=== PATIENT | female | born 1985 | race Caucasian/White ===

== ENCOUNTER 2016-11-11 09:42 | Inpatient (IN) ==
--- NOTE | 2016-11-11 10:08 | Emergency Department Note ---
Disposition Clinical Impression: Bacteremia Disposition: Admitted As Inpatient Recheck wound or abnormal lab - General Stated Complaint: + blood cultures Time Seen by Provider: 11/11/16 09:51 Source: patient, family Limitations: no limitations Nursing Notes Reviewed: Yes Vital Signs Reviewed: Yes - History of Present Illness HPI Narrative: Ms. Forman, a 31yo female, presents with CC: abnormal labs. Patient was seen in this emergency department yesterday with complaint of persistent abdominal pain , history of colonic abscess managed by Dr. Stephen, currently on Cipro and Flagyl. Blood cultures were drawn yesterday which were reported today: gram- positive riddhi and streptococci species. Patient reports chills, weakness, feeling flush. Her abdominal pain persists which she describes as a loading, heaviness, intermittent sharp stabbing. Abdominal pain worsened with walking and associated with nausea, decreased appetitie. Denies diarrhea or constipation, no dark or red stools, no changes in urination. Denies chest pain, dyspnea. Patient is currently on immunosuppressants for RA. PMH:Diverticulosis, diverticulitis, known recent colonic abscess, RA PSH: appendectomy - Related Data Home Medications Medication Instructions Recorded Confirmed Leflunomide [Arava] 20 mg PO DAILY 08/13/16 11/11/16 TraMADol [Ultram] 50 - 100 mg PO Q6H PRN 08/13/16 11/11/16 Ciprofloxacin [Cipro] 500 mg PO BID 11/11/16 11/11/16 MetroNIDAZOLE [Flagyl] 500 mg PO BID 11/11/16 11/11/16 Venlafaxine XR (24 HR) [Effexor Xr] 37.5 mg PO DAILY 11/11/16 11/11/16 Previous Rx's Medication Instructions Recorded Ondansetron ODT [Zofran ODT] 4 mg PO Q6HR PRN #10 tab.rapdis 08/13/16 HYDROcodone/Acet 5/325 mg [[place] 1 tab PO Q6H PRN #20 tab 11/10/16 5-325 mg] Allergies Allergy/AdvReac Type Severity Reaction Status Date / Time No Known Allergies Allergy Verified 11/11/16 09:51 All systems ED: reviewed and negative except as stated. Constitutional: Reports: fever, chills, weakness. Denies: night sweats ENT ED: Denies: congestion Cardiovascular: Denies: chest pain, palpitations, dyspnea on exertion Respiratory: Denies: cough, dyspnea, wheezes Gastrointestinal: Reports: abdominal pain, nausea. Denies: vomiting, diarrhea, constipation, melena, hematochezia Genitourinary: Denies: dysuria Musculoskeletal: Denies: back pain Integumentary: Denies: rash Neurological: Reports: weakness, abnormal gait. Denies: headache, numbness, paresthesias Endocrine: Reports: fatigue Hematological/Lymphatic: Denies: easy bleeding, easy bruising Past Medical History - Past Medical History Medical history: Reports: GERD, RA, other Surgical history: Reports: appendectomy Psychiatric history: Reports: no psych history FOUNDATION RELATIONS MANAGER history: Reports: no FOUNDATION RELATIONS MANAGER history - Social History Smoking Status: Never smoker Smokeless Tobacco Status: No Alcohol use: Reports: none Drug use: Reports: none Physical Exam General: Patient is alert, oriented, and in no acute distress. HEENT: No facial asymmetry. Head is normocephalic and atraumatic. Cardiovascular: Heart regular rate and rhythm without clicks, rubs, gallops, or murmurs. Respiratory: Symmetric chest rise with good respiratory effort. Bilateral breath sounds are clear without wheezing, crackles, or rhonchi. Abdomen: Obese. Bowel sounds present normoactive x-4 quadrants. Abdomen is soft, nondistended. Tenderness in LLQ described as sharp. No rebound tenderness. No organomegaly noted. Musculoskeletal: Muscle strength 5/5 and symmetric bilaterally in upper and lower extremities. DTRs 2/4 and symmetric. Psych: Patient's affect is appropriate for situation. - General Limitations: no limitations General appearance: alert, in no apparent distress Course Course Narrative: Will repeat sepsis workup. After blood cultures, will begin IV abx and gentle fluid rehydration. PAtient is not tachypneic or tachycardic. No clinical indication at this time for aggressive fluid rehydration. Anticipate admission for continued antibiotics. 10:[address] Bernard. He decreased to accept the patient for continued IV abx. Vital Signs Temperature 98.1 F 11/11/16 09:51 Pulse Rate 96 11/11/16 09:51 Respiratory Rate 18 11/11/16 09:51 Blood Pressure 144/88 11/11/16 09:51 O2 Sat by Pulse Oximetry 97 11/11/16 09:51 Temperature 98.3 F 11/11/16 11:51 Pulse Rate 84 11/11/16 11:51 Respiratory Rate 16 11/11/16 11:51 Blood Pressure 117/76 11/11/16 11:51 O2 Sat by Pulse Oximetry 95 11/11/16 11:51 Oxygen Delivery Oxygen Delivery Room Air Recheck wound or abnormal lab - Lab Data Result diagrams: 11/11/16 10:15 11/11/16 10:15 Lab Results 11/11/16 11/11/16 11/11/16 Range/Units 10:15 10:15 10:15 WBC 5.7 (4.3-11.1) K/mcL RBC 4.43 (3.82-4.97) M/mcL Hgb 12.7 (11.5-15.4) g/dL Hct 40.3 (35.3-44.9) % MCV 91.0 (83.0-100.0) fL MCH 28.7 (28.0-33.3) pg MCHC 31.5 L (31.6-35.5) g/dL RDW 14.0 (11.5-14.5) % Plt Count 290 (140-400) K/mcL MPV 9.2 L (9.4-12.4) fL Immature Gran % 0.4 (0-4) % Seg Neutrophils % 68.4 % Lymphocytes % 16.8 % Monocytes % 8.4 % Eosinophils % 5.3 % Basophils % 0.7 % Neutrophils # 3.9 (1.6-8.9) K/mcL Lymphocytes # 1.0 (0.6-4.6) K/mcL Monocytes # 0.5 (0.0-1.3) K/mcL Eosinophils # 0.3 (0.0-0.6) K/mcL Basophils # 0.0 (0.0-0.2) K/mcL Sodium 138 (136-145) mEq/L Potassium 3.9 (3.5-4.5) mEq/L Chloride 108 (98-109) mEq/L Carbon Dioxide 23 (19-29) mEq/L BUN 5 L (7-20) mg/dL Creatinine 0.74 (0.57-1.11) mg/dL Est GFR ( Amer) > 60 (> 60) Est GFR (Non-Af Amer) > 60 (> 60) BUN/Creatinine Ratio 7 (6-26) Glucose 97 (70-99) mg/dL Calculated Osmolality 283 (280-300) Lactic Acid 1.0 (0.5-2.2) mmol/L Calcium 9.5 (8.6-10.8) mg/dL Phosphorus 1.5 L (2.3-4.7) mg/dL Magnesium 2.0 (1.6-2.6) mg/dL Total Bilirubin 0.7 (0.2-1.2) mg/dL Direct Bilirubin 0.4 (0.0-0.5) mg/dL Indirect Bilirubin 0.3 (0.0-1.2) mg/dL AST 26 (5-34) Units/L ALT 13 (0-55) Units/L Alkaline Phosphatase 130 H (38-126) Units/L Serum Total Protein 8.4 H (6.0-8.3) g/dL Albumin 3.5 (3.5-5.0) g/dL Globulin 4.9 H (2.4-3.5) g/dL Albumin/Globulin Ratio 0.7 L (1.1-2.2) - EKG Data EKG attestation: Yes I reviewed and interpreted this EKG. EKG results narrative: Sinus tachycardia at 100 with poor R-wave progression. No ST changes. Normal axis. Attestation Statement - Attestation Attestation: I examined this patient and my medical decision-making was reviewed with the DELI ASSOCIATE/PA/Advanced Practice Nurse/Resident Physician. I agree with the documented findings, disposition and treatment plan as described except to the extent set forth below. The patient presents to emergency department after being called in for positive blood cultures. Patient has been treated on and off for diverticulitis since the fall. She has had rounds of Augmentin and is currently on Cipro Flagyl. She is recently diagnosed with an abscess in her left lower quadrant. This is believed to be from her immune suppressants for her rheumatoid arthritis. On exam she is in no distress. Heart regular rate and rhythm lungs clear. She does have some tenderness over the left pelvic area. Plan. Sepsis protocol. IV antibiotics ordered. Admitted to medicine. Labs unremarkable. No white count. Patient is admitted to medicine. Zosyn started emergency department.
[2016-11-11] MEDS ORDERED: Piperacillin/Tazobactam 4.5 GM in D5% in Water (Mini-Bag+) 100 ML IVPB ONE (10:21)
[2016-11-11 10:23] LABS: Basophils % 0.7 %; Eosinophils # 0.3 K/mcL (0.0-0.6); Eosinophils % 5.3 %; Hematocrit 40.3 % (35.3-44.9); Hemoglobin 12.7 g/dL (11.5-15.4); Immature Granulocytes % 0.4 % (0-4); Lymphocytes % 16.8 %; Mean Corpuscular HGB Conc 31.5 g/dL (31.6-35.5); Mean Corpuscular Hemoglobin 28.7 pg (28.0-33.3); Mean Platelet Volume 9.2 fL (9.4-12.4); Monocytes # 0.5 K/mcL (0.0-1.3); Monocytes % 8.4 %; Neutrophils # 3.9 K/mcL (1.6-8.9); Platelet Count 290 K/mcL (140-400); Red Blood Count 4.43 M/mcL (3.82-4.97); Segmented Neutrophils % 68.4 %
[2016-11-11 10:38] LABS: Alanine Aminotransferase 13 Units/L (0-55); Albumin 3.5 g/dL (3.5-5.0); Albumin/Globulin Ratio 0.7 (1.1-2.2); Alkaline Phosphatase 130 Units/L (38-126); Aspartate Amino Transferase 26 Units/L (5-34); BUN/Creatinine Ratio 7 (6-26); Bilirubin,Direct 0.4 mg/dL (0.0-0.5); Bilirubin,Indirect 0.3 mg/dL (0.0-1.2); Bilirubin,Total 0.7 mg/dL (0.2-1.2); Blood Urea Nitrogen 5 mg/dL (7-20); Calcium 9.5 mg/dL (8.6-10.8); Carbon Dioxide 23 mEq/L (19-29); Chloride 108 mEq/L (98-109); Globulin 4.9 g/dL (2.4-3.5); Glucose 97 mg/dL (70-99); Osmolality,Calculated 283 (280-300); Phosphorous 1.5 mg/dL (2.3-4.7); Potassium 3.9 mEq/L (3.5-4.5); Sodium 138 mEq/L (136-145); Total Protein 8.4 g/dL (6.0-8.3); eGFR For African Americans > 60 (> 60); eGFR For Non-African Americans > 60 (> 60)
[2016-11-11] MEDS ORDERED: Ondansetron 4 MG/2 ML VIAL IVP STA (10:54)
[2016-11-11] MEDS ORDERED: *HR* Morphine 2 MG/ML SYRINGE IVP ONE (10:55)
[2016-11-11] MEDS ORDERED: *HR* Morphine 2 MG/ML SYRINGE IV PRN (11:43)
[2016-11-11] MEDS ORDERED: Acetaminophen 325 MG TABLET PO PRN (11:44)
[2016-11-11] MEDS ORDERED: Naloxone 0.4 MG/ML INJ IVP PRN (11:44)
[2016-11-11] MEDS ORDERED: Ondansetron 4 MG/2 ML VIAL IVP PRN (11:44)
--- NOTE | 2016-11-11 11:53 | Internal Med History&Physical ---
Date of Encounter: 11/11/16 Time of Encounter: 11:50 Assessment and Plan (1) Bacteremia Current visit: Yes Status: Acute Bacteremia with gram-positive rods and also gram-positive cocci/Streptococcus likely related to intra-abdominal abscess/sigmoid acute diverticulitis Discontinue ciprofloxacin and Flagyl (Flagyl has good coverage for gram- negative anaerobes) Start ampicillin with sulbactam , also clindamycin IV May adjust therapy according to culture sensitivity, consider vancomycin IV if worse Clear liquids, may switch to nothing by mouth if not improving Consider surgical reconsult with Dr. Stephen if not improving IV fluids and morphine for pain (2) Intra-abdominal abscess Current visit: No Status: Acute (3) Acute diverticulitis Current visit: Yes Status: Acute (4) Rheumatoid arthritis Current visit: Yes Status: Acute Hold Areva until infection improves Protonix IV for GI prophylaxis and sequential compression devices for DVT prophylaxis. Patient will be admitted as inpatient as she failed outpatient therapy, she is expected to stay more than 2 midnights. She is a full code. Time spent on this admission 40 minutes. High risk due to persistent sigmoid abscess and diverticulitis Internal Medicine - H&P: HPI Chief complaint: Abdominal pain Admitted From: Emergency Dept Plans for Post Hospital Care: Home History of present illness: Ms. Forman is a 31 year old female with a past medical history of lupus, rheumatoid arthritis currently on Arava, who was diagnosed within the past 2 weeks with the diverticulitis and was treated by Dr. Stephen. 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 Yesterday, she came to the emergency room and a CT scan was performed which showed a persistent abscess 2.5 x 1.5 cm adjacent to the sigmoid colon/diverticulitis. 2 weeks ago the patient was taking Augmentin and for the past 3 days she has been taking ciprofloxacin and Flagyl, unfortunately she has not felt any improvement in his us to complain of lower abdominal pain 7 out of 10 in intensity. Had a fever of 100.1. White blood cell count today is normal was more than 11 yesterday. Denies any diarrhea, no vomiting has been having nausea. Denies any cough, no dysuria, no other complaints Past Med Surg Social Fam HX - Past Medical History Medical history: GERD, RA (Treated with leflunomide), other (Possible lupus not active, diverticulosis, diverticulitis, anxiety) Psychiatric history: no psych history - Past Surgical History Surgical History: appendectomy, other (Left axillary lymph node biopsy, last echocardiogram shows an ejection fraction of 50-55%) - Social History Smoking Status: Never smoker Smokeless Tobacco Status: No Alcohol use: none Drug use: none - Additional Family History Additional family history: According to the records had a maternal grandmother with lymphoma Internal Medicine - H&P: Meds Leflunomide [Arava] 20 mg PO DAILY 08/13/16 [History] Ondansetron ODT [Zofran ODT] 4 mg PO Q6HR PRN #10 tab.rapdis 08/13/16 [Rx] TraMADol [Ultram] 50 - 100 mg PO Q6H PRN 08/13/16 [History] HYDROcodone/Acet 5/325 mg [[place] 5-325 mg] 1 tab PO Q6H PRN #20 tab 11/10/16 [Rx ] Ciprofloxacin [Cipro] 500 mg PO BID 11/11/16 [History] MetroNIDAZOLE [Flagyl] 500 mg PO BID 11/11/16 [History] Venlafaxine XR (24 HR) [Effexor Xr] 37.5 mg PO DAILY 11/11/16 [History] Allergies No Known Allergies Allergy (Verified 11/11/16 09:51) All Systems PM: A 10-system review of systems was performed and is negative for pertinent findings except as documented above in the HPI. Review of systems: Denies any chest pain, shortness of breath, other systems out of the 10 reviewed were negative - Constitutional Vitals: Temp Pulse Resp BP Pulse Ox 98.1 F 96 16 146/88 97 11/11/16 09:51 11/11/16 09:51 11/11/16 11:24 11/11/16 11:24 11/11/16 09:51 General appearance: Present: A&O X 3, pleasant, no acute distress - Head Head exam: Present: atraumatic, normocephalic - Eye Eye exam: Present: PERRL, conjuntiva pink, sclera anicteric Pupils: Present: PERRL - Neck Neck exam general surgery: Present: supple, trachea midline. Absent: lymphadenopathy - Respiratory Respiratory exam: Present: CTAB. Absent: accessory muscle use, rales, rhonchi, wheezes - Cardiovascular Cardiovascular exam: Present: RRR, +S1, +S2. Absent: diastolic murmur, gallop, rubs, systolic murmur - GI/Abdominal GI/Abdominal exam: Present: distended, normal bowel sounds, soft, tenderness ( Lower abdomen tenderness, no rebound), no peritoneal signs. Absent: rebound - Extremities Exam Extremities exam: Present: warm, radial pulses palpable and symetrical. Absent : calf tenderness, cyanotic, pedal edema - Neurological Exam Neurological exam: Present: CN II-XII intact, oriented X3, no focal deficits. Absent: pronater drift, facial droop, speech deficit - Skin Skin exam: Present: dry, intact Internal Med - H&P Results - Labs CBC & Chem 7: 11/11/16 10:15 11/11/16 10:15
[2016-11-11] MEDS: D5% in 0.45% NACL 1,000 ML IVC SCH ×2 (12:54→23:24)
[2016-11-11] MEDS: Ampicillin/Sulbactam 1,500 MG in 0.9 % Sodium Chloride Mini Bag 100 ML IVPB SCH ×3 (12:55→23:24)
[2016-11-11] MEDS: *HR* HYDROcodone/Acet 5/325 mg TABLET PO PRN ×2 (14:18→21:58)
[2016-11-11] MEDS: Pantoprazole 40 MG VIAL IV SCH (14:20)
[2016-11-11] MEDS: Clindamycin 600 MG/50 ML 600 MG/50 ML IV.SOLN IVPB SCH ×3 (14:20→23:24)
[2016-11-11 14:49] LABS: Bilirubin,Urine Negative (Negative); Blood,Urine Negative (Negative); Clarity,Urine Clear (Clear); Color,Urine Yellow (Yellow); Glucose,Urine (UA) Normal (Normal); Ketones,Urine Negative (Negative); Leukocyte Esterase,Urine Trace (Negative); Nitrite,Urine Negative (Negative); PH,Urine 6.5 pH Units (5.0-8.0); Protein,Urine Negative (Neg-Trace); Specific Gravity,Urine 1.016 (1.010-1.025); Urobilinogen,Urine Normal (Normal)
[2016-11-11 14:51] LABS: Bacteria,Urine None Seen per hpf (None-Few); Hyaline Casts,Urine None Seen per lpf (None-Few); RBC,Urine 0-3 per hpf (0-3); Squamous Epithelial Cell,Urine Many per lpf (None-Few); WBC,Urine 0-3 per hpf (0-3)
[2016-11-12] MEDS ORDERED: Sodium Phosphate 30 MMOL in D5% in Water 100 ML IVPB ONE (04:37)
[2016-11-12] MEDS ORDERED: *HR* HYDROmorphone (PF) 1 MG/ML SYRINGE IVP STA (04:37)
[2016-11-12] MEDS ORDERED: Scopolamine Patch 1.5 MG PATCH.TD72 TD ONE (04:45)
[2016-11-12] MEDS ORDERED: Ondansetron 4 MG/2 ML VIAL IVP PRN (04:46)
[2016-11-12 05:02] LABS: Basophils # 0.1 K/mcL (0.0-0.2); Basophils % 0.8 %; Eosinophils # 0.3 K/mcL (0.0-0.6); Eosinophils % 5.4 %; Hemoglobin 11.3 g/dL (11.5-15.4); Immature Granulocytes % 0.2 % (0-4); Lymphocytes # 1.6 K/mcL (0.6-4.6); Lymphocytes % 26.6 %; Mean Corpuscular HGB Conc 31.4 g/dL (31.6-35.5); Mean Corpuscular Volume 92.5 fL (83.0-100.0); Mean Platelet Volume 9.3 fL (9.4-12.4); Monocytes # 0.7 K/mcL (0.0-1.3); Monocytes % 10.8 %; Neutrophils # 3.4 K/mcL (1.6-8.9); Platelet Count 257 K/mcL (140-400); Red Blood Count 3.89 M/mcL (3.82-4.97); Segmented Neutrophils % 56.2 %
[2016-11-12] MEDS: Ampicillin/Sulbactam 1,500 MG in 0.9 % Sodium Chloride Mini Bag 100 ML IVPB SCH ×3 (05:03→18:18)
[2016-11-12 05:29] LABS: Amylase 28 Units/L (25-125); BUN/Creatinine Ratio 6 (6-26); Calcium 8.5 mg/dL (8.6-10.8); Carbon Dioxide 23 mEq/L (19-29); Chloride 109 mEq/L (98-109); Glucose 96 mg/dL (70-99); Lipase 6 Units/L (8-78); Osmolality,Calculated 287 (280-300); Potassium 3.7 mEq/L (3.5-4.5); Sodium 140 mEq/L (136-145); eGFR For African Americans > 60 (> 60); eGFR For Non-African Americans > 60 (> 60)
[2016-11-12 05:30] LABS: Blood Urea Nitrogen 4 mg/dL (7-20)
[2016-11-12] MEDS ORDERED: *HR* HYDROmorphone (PF) 1 MG/ML SYRINGE IVP PRN (06:00)
[2016-11-12] MEDS: Pantoprazole 40 MG VIAL IV SCH (08:07)
[2016-11-12] MEDS: Donnatal Liq 10 ML UDC PO SCH ×2 (08:07→20:36)
[2016-11-12] MEDS: Clindamycin 600 MG/50 ML 600 MG/50 ML IV.SOLN IVPB SCH ×2 (08:08→15:55)
[2016-11-12] MEDS: *HR* OxyCODONE Immed Rel 5 MG TABLET PO PRN ×2 (08:26→21:30)
[2016-11-12] MEDS ORDERED: Venlafaxine XR (24 HR) 37.5 MG CAP.ER.24H PO SCH (09:00)
[2016-11-12] MEDS: D5% in 0.45% NACL 1,000 ML IVC SCH ×2 (11:43→23:34)
[2016-11-12] MEDS: Ketorolac 15 MG/ML VIAL IVP PRN ×2 (16:03→21:31)
--- NOTE | 2016-11-12 16:03 | Electrocardiograph Report ---
[facility] Test Date: 2016-11-11 Pat Name: Valencia Forman Department: 103 Room: 3A46 Gender: F Charger Tester: SINDHU : 1985 Requested By: Kirk Alfred Order Number: [id number] Reading MD: Carol Mcdaniels Measurements Intervals [place] Rate: 100 P: 47 MD: 146 QRS: -1 QRSD: 76 T: 3 QT: 300 QTc: 357 Interpretive Statements SINUS TACHYCARDIA POSSIBLE ANTERIOR MYOCARDIAL INFARCTION, OF INDETERMINATE AGE Electronically Signed On 11-12-16 16:02:17 EST by Carol Mcdaniels
--- NOTE | 2016-11-12 16:16 | Internal Med Progress Note ---
Date of Encounter: 11/12/16 Time of Encounter: 16:13 - Assessment and plan (1) Bacteremia Current Visit: Yes Status: Acute Assessment and plan: Bacteremia with gram-positive rods and also gram-positive cocci/Streptococcus likely related to intra-abdominal abscess/sigmoid acute diverticuliti continue ampicillin with sulbactam and clindamycin IV, remains afebrile, we will follow blood culture sensitivity results and de- escalate accordingly. Change to soft diet from clear liquids, tolerating well. Events as tolerated. IV fluids and morphine for pain (2) Acute diverticulitis Current Visit: Yes Status: Acute Assessment and plan: CT pelvis still has persistent inflammation s/o acute diverticulitis. supportive tx with IV antibiotics gradual advance of diet. (3) Rheumatoid arthritis Current Visit: Yes Status: Acute Qualifiers: Rheumatoid factor presence: unspecified presence Laterality: unspecified laterality Qualified Code(s): M06.9 - Rheumatoid arthritis, unspecified (4) Intra-abdominal abscess Current Visit: No Status: Acute - Time Spent With Patient 25 - 35 minutes - Subjective Interval history: Patient was seen at the bedside, complaining of mild left lower abdominal pain and nausea. Admitted for diverticulitis and abdominal abscess diagnosed in september, repeat pelvic CAT scan done yesterday shows improving abscess, however blood cx positive for gram psitive rods and cocci strated on unasyn and clindamycin. Was started on clear liquids yesterday, has been advanced to soft diet today. Denies any fever, regular bowel movements. - Constitutional Vitals: Temp Pulse Resp BP Pulse Ox 97.6 F 72 16 122/79 98 11/12/16 14:08 11/12/16 14:08 11/12/16 14:08 11/12/16 14:08 11/12/16 14:08 General appearance: Present: A&O X 3, pleasant, no acute distress Exam: General appearance: Present: A&O X 3, pleasant, no acute distress - Head Head exam: Present: atraumatic, normocephalic - Eye Eye exam: Present: PERRL, conjuntiva pink, sclera anicteric Pupils: Present: PERRL - Neck Neck exam general surgery: Present: supple, trachea midline. Absent: lymphadenopathy - Respiratory Respiratory exam: Present: CTAB. Absent: accessory muscle use, rales, rhonchi, wheezes - Cardiovascular Cardiovascular exam: Present: RRR, +S1, +S2. Absent: diastolic murmur, gallop, rubs, systolic murmur - GI/Abdominal GI/Abdominal exam: Present: distended, normal bowel sounds, soft, tenderness ( left Lower abdomen tenderness, no rebound), no peritoneal signs. Absent: rebound - Extremities Exam Extremities exam: Present: warm, radial pulses palpable and symetrical. Absent : calf tenderness, cyanotic, pedal edema - Neurological Exam Neurological exam: Present: CN II-XII intact, oriented X3, no focal deficits. Absent: pronater drift, facial droop, speech deficit - Skin Skin exam: Present: dry, intact Internal Medicine: Result - Labs CBC & Chem 7: 11/12/16 04:46 11/12/16 04:46 Labs: Short CBC 11/12/16 Range/Units 04:46 WBC 6.1 (4.3-11.1) K/mcL Hgb 11.3 L (11.5-15.4) g/dL Hct 36.0 (35.3-44.9) % Plt Count 257 (140-400) K/mcL Neutrophils # 3.4 (1.6-8.9) K/mcL BMP 11/12/16 04:46 Sodium 140 Potassium 3.7 Chloride 109 Carbon Dioxide 23 BUN 4 L Creatinine 0.66 Glucose 96 Calcium 8.5 L - VTE Documentation of Mechanical Device: Intermittent pneumatic compression device Consult Discharge Plan - Plan Referrals: Carol Benjamin MD [Primary Care Provider] - 11/18/16 1:30 pm
[2016-11-12] MEDS: Venlafaxine XR (24 HR) 37.5 MG CAP.ER.24H PO SCH (20:36)
[2016-11-13] MEDS: Clindamycin 600 MG/50 ML 600 MG/50 ML IV.SOLN IVPB SCH ×2 (00:24→08:57)
[2016-11-13] MEDS: Ampicillin/Sulbactam 1,500 MG in 0.9 % Sodium Chloride Mini Bag 100 ML IVPB SCH ×3 (00:27→12:27)
[2016-11-13 06:44] VITALS: BP 105/68
[2016-11-13] MEDS: Pantoprazole 40 MG VIAL IV SCH (08:57)
[2016-11-13] MEDS: Venlafaxine XR (24 HR) 37.5 MG CAP.ER.24H PO SCH (08:58)
[2016-11-13] MEDS: Donnatal Liq 10 ML UDC PO SCH (08:58)
[2016-11-13] MEDS: *HR* OxyCODONE Immed Rel 5 MG TABLET PO PRN (11:31)
--- NOTE | 2016-11-13 15:46 | Discharge Summary ---
Date of Encounter: 11/13/16 Time of Encounter: 15:41 - Discharge Diagnosis (1) Bacteremia Priority: Primary Status: Acute (2) Acute diverticulitis Priority: Secondary Status: Acute (3) Rheumatoid arthritis Priority: Secondary Status: Acute Qualifiers: Rheumatoid factor presence: unspecified presence Laterality: unspecified laterality Qualified Code(s): M06.9 - Rheumatoid arthritis, unspecified (4) Intra-abdominal abscess Priority: Secondary Status: Acute - Discharge Medications Prescriptions: Levofloxacin 500 mg PO DAILY #7 tablet Home Medications: Leflunomide [Arava] 20 mg PO DAILY 08/13/16 [History] Ondansetron ODT [Zofran ODT] 4 mg PO Q6HR PRN #10 tab.rapdis 08/13/16 [Rx] TraMADol [Ultram] 50 - 100 mg PO Q6H PRN 08/13/16 [History] HYDROcodone/Acet 5/325 mg [[place] 5-325 mg] 1 tab PO Q6H PRN #20 tab 11/10/16 [Rx ] MetroNIDAZOLE [Flagyl] 500 mg PO BID 11/11/16 [History] Venlafaxine XR (24 HR) [Effexor Xr] 37.5 mg PO DAILY 11/11/16 [History] Levofloxacin 500 mg PO DAILY #7 tablet 11/13/16 [Rx] Allergies/Adverse Reactions: Allergies No Known Allergies Allergy (Verified 11/11/16 09:51) Date of admission: 11/11/16 10:56 Primary care physician: Carol Norris Discharging clinician: Susy Caputo Anticipated date of discharge: 11/13/16 - Patient Status Disposition: Home, Self-Care Condition: Fair Functional capacity at discharge: independent ambulation Overall status at discharge: patient is back to baseline - Discharge Instructions Instructions: Diverticulitis (DC), Abscess (GEN) Follow Up With: Carol Benjamin MD [Primary Care Provider] - 11/18/16 1:30 pm Forms: ED Satisfaction Letter, Work/School Release - Diet and Activity Activity: resume usual activities as tolerated Diet: advance to your usual diet Interval History: Ms. Forman is a 31 year old female with a past medical history of lupus, rheumatoid arthritis currently on Arava, who was diagnosed within the past 2 weeks with the diverticulitis and was treated by Dr. Stephen. 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 Yesterday, she came to the emergency room and a CT scan was performed which showed a persistent abscess 2.5 x 1.5 cm adjacent to the sigmoid colon/diverticulitis. 2 weeks ago the patient was taking Augmentin and for the past 3 days she has been taking ciprofloxacin and Flagyl, unfortunately she has not felt any improvement in his us to complain of lower abdominal pain 7 out of 10 in intensity. Had a fever of 100.1. White blood cell count today is normal was more than 11 yesterday. Denies any diarrhea, no vomiting has been having nausea. Denies any cough, no dysuria, no other complaints Hospital course: She was admitted for Bacteremia with gram-positive rods and also gram-positive cocci/Streptococcus likely related to intra-abdominal abscess/sigmoid acute diverticulitis Discontinue ciprofloxacin and Flagyl was Started on unasyn and clindamycin. CT pelvis still has persistent inflammation s/o acute diverticulitis but has decreasing abscess. hernán has no more fever spikes and her diet was gradually advacned , which she tolertaed well At this time one of her blood culture sample is positive for strep viridans, however another set that is growing gram positive rods is yet to have final cx and sensitivty results bulmaro reports that she would like to be dc today and f/u with Dr. Gordon on for final cx results. SHE has improved clincally and is hemodynamically stable will dc her on levoflox and clindamycin was advised to keep the f/u with Dr. Stephen. Time spent discussing smoking cessation with patient: more than 10 minutes - Time Spent with Patient Total time spent providing and/or coordinating discharge services: Greater than 30 minutes - Constitutional Vitals: Temp Pulse Resp BP Pulse Ox 98.2 F 92 15 105/68 97 11/13/16 06:39 11/13/16 06:39 11/13/16 06:39 11/13/16 06:39 11/13/16 06:39 General appearance: Present: A&O X 3, pleasant, no acute distress Exam: General appearance: Present: A&O X 3, pleasant, no acute distress Exam: General appearance: Present: A&O X 3, pleasant, no acute distress - Head Head exam: Present: atraumatic, normocephalic - Eye Eye exam: Present: PERRL, conjuntiva pink, sclera anicteric Pupils: Present: PERRL - Neck Neck exam general surgery: Present: supple, trachea midline. Absent: lymphadenopathy - Respiratory Respiratory exam: Present: CTAB. Absent: accessory muscle use, rales, rhonchi, wheezes - Cardiovascular Cardiovascular exam: Present: RRR, +S1, +S2. Absent: diastolic murmur, gallop, rubs, systolic murmur - GI/Abdominal GI/Abdominal exam: Present: soft, non tender, no peritoneal signs. Absent: rebound - Extremities Exam Extremities exam: Present: warm, radial pulses palpable and symetrical. Absent : calf tenderness, cyanotic, pedal edema - Neurological Exam Neurological exam: Present: CN II-XII intact, oriented X3, no focal deficits. Absent: pronater drift, facial droop, speech deficit - Skin Skin exam: Present: dry, intact - VTE Documentation of Mechanical Device: Intermittent pneumatic compression device
== END 2016-11-13 16:09 | disposition home or self-care (01) | DRG 392 ==
LOC: EMEROO 09:42 → SUATTDRO 10:56 → 3ANU 10:56
PROVIDERS: ADMIT Internal Medicine; ATTEND Internal Medicine Endocrinology, Diabetes & Metabolism

== ENCOUNTER 2017-01-25 08:34 | Inpatient (IN) ==
[2017-01-25] MEDS ORDERED: *HR* Midazolam HCl 2 MG/2 ML VIAL ONE (08:46)
[2017-01-25] MEDS ORDERED: *HR* Succinylcholine 200 MG/10 ML VIAL IVP ONE (08:46)
[2017-01-25] MEDS ORDERED: Lidocaine -MPF 4% 5 ML AMPUL ONE (08:46)
[2017-01-25] MEDS ORDERED: Lidocaine -MPF 2% 2 ML VIAL ONE (08:46)
[2017-01-25] MEDS ORDERED: *HR* FentaNYL (PF) 100 MCG/2 ML VIAL ONE (08:46)
[2017-01-25] MEDS ORDERED: Neostigmine Methylsulfate 3 MG/3 ML SYRINGE ONE ×3 (08:46→15:36)
[2017-01-25] MEDS ORDERED: *HR* Propofol 200 MG/20 ML VIAL IVP ONE ×2 (08:46→14:56)
[2017-01-25] MEDS ORDERED: *HR* Rocuronium Bromide 50 MG/5 ML VIAL ONE (08:46)
[2017-01-25] MEDS ORDERED: Ondansetron 4 MG/2 ML VIAL ONE (08:46)
[2017-01-25] MEDS ORDERED: Dexamethasone 4 MG/ML VIAL ONE (08:46)
[2017-01-25] MEDS ORDERED: cefOXitin 2,000 MG in D5% in Water (Mini-Bag+) 100 ML IVPB ONE (08:55)
[2017-01-25] MEDS ORDERED: Ringers Solution, Lactated 1,000 ML IVC SCH (09:00)
[2017-01-25] MEDS ORDERED: Scopolamine Patch 1.5 MG PATCH.TD72 TD ONE (09:27)
[2017-01-25] MEDS ORDERED: cloNIDine HCl 0.1 MG TABLET PO ONE (09:27)
[2017-01-25] MEDS ORDERED: Metoclopramide 10 MG/2 ML VIAL IVP ONE (09:27)
[2017-01-25] MEDS ORDERED: *HR* Promethazine 25 MG/ML VIAL IVP PRN (09:27)
[2017-01-25] MEDS ORDERED: Famotidine 20 MG/2 ML VIAL IVP ONE (09:27)
[2017-01-25] MEDS ORDERED: *HR* Labetalol 100 MG/20 ML MDV IVP PRN (09:27)
[2017-01-25] MEDS ORDERED: *HR* HYDROmorphone (PF) 1 MG/ML SYRINGE IVP PRN (09:27)
[2017-01-25] MEDS ORDERED: Acetaminophen IV 1,000 MG/100 ML INFUS..BTL IVPB ONE (09:30)
[2017-01-25] MEDS ORDERED: Gabapentin 300 MG CAPSULE PO STA (09:30)
--- NOTE | 2017-01-25 09:34 | Anesthesia Evaluation PreOp ---
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: Other (Anxiety/Depression maintained on Effexor) Other Medical History: Renal (Hx of kidney stones), Other (RA) Anesthesia History: No Prior Anesthetic Complications, Past Anesthesia ([place] 2007, R-axillary Lymph Node Bx, Colonoscopy) Alcohol Use: none Drug use: none Medications and Allergies Leflunomide [Arava] 20 mg PO DAILY 08/13/16 [History] Ondansetron ODT [Zofran ODT] 4 mg PO Q6HR PRN #10 tab.rapdis 08/13/16 [Rx] TraMADol [Ultram] 50 - 100 mg PO Q6H PRN 08/13/16 [History] HYDROcodone/Acet 5/325 mg [[place] 5-325 mg] 1 tab PO Q6H PRN #20 tab 11/10/16 [Rx ] MetroNIDAZOLE [Flagyl] 500 mg PO BID 11/11/16 [History] Venlafaxine XR (24 HR) [Effexor Xr] 37.5 mg PO DAILY 11/11/16 [History] Levofloxacin 500 mg PO DAILY #7 tablet 11/13/16 [Rx] Allergies No Known Allergies Allergy (Verified 11/11/16 09:51) - Meds/Allergy Pre-op Review Medications Reviewed: Yes Allergies Reviewed: Yes Beta Blockers on Current Med List: No Anesthesia Results - Labs Laboratory Tests 11/12/16 01/18/17 01/18/17 04:46 10:55 10:55 WBC 7.4 Hgb 13.7 Hct 43.7 Plt Count 280 Sodium 140 Potassium 3.7 Chloride 109 Carbon Dioxide 23 BUN 4 L Creatinine 0.66 Est GFR (Non-Af Amer) > 60 Glucose 96 Serum , Qual Negative - Imaging EKG: image reviewed Anesthesia Exam O2 Sat Height 1.65 m Height 1.65 m Height 1.65 m Weight 93.44 kg Weight 93.44 kg Weight 93.44 kg O2 Sat by Pulse Oximetry 97 O2 Sat by Pulse Oximetry 97 Vital Signs Temp Pulse Resp BP Pulse Ox 98.0 F 109 18 123/69 97 01/25/17 08:45 01/25/17 08:45 01/25/17 08:45 04/04/17 08:45 01/25/17 08:45 Height: 5'5" Weight: 206# bmi = 34.3 NPO (# of Hours): MNoc - HEENT Pupil (Motor): Pupils equal, EOMI Mallampati: II Teeth: Normal Oral Opening: Greater than 3 - ICE 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 Eliud Pinto MD
--- NOTE | 2017-01-25 09:56 | History & Physical Report ---
Date of Encounter: 01/25/17 Time of Encounter: 09:56 24 Hour HP Update - Instructions Instructions: If the History and Physical is less than 30 days old and was completed prior to A.M. admission and or procedure and has NOT been updated on calendar day of procedure please complete this update prior to performing procedure. - Update Patient reports changes in Medical Condition: No Changes in examination, assessment, or condition: No Changes in Medication: No Preop tests/diagnostics Reviewed: Yes Pre-Op MRSA Screen: Negative Surgery Remains Indicated: Yes Consent for Planned Operative Procedure(s) Verified: Yes - Pre-Operative Checklist Preoperative Checklist Indicated: No Prophylactic Antibiotic Ordered: Yes Home Medications Include Beta Keith: No Beta Keith Taken Today (Day of Surgery): No Beta Keith Taken Yesterday (Day Prior to Surgery): No Is VTE Prophylaxis Indicated?: NO
[2017-01-25] MEDS ORDERED: *HR* HYDROmorphone 2 MG/ML SYRINGE ONE ×2 (11:16→14:55)
[2017-01-25] MEDS ORDERED: CefOXitin 2,000 MG VIAL IVPB ONE (15:13)
[2017-01-25] MEDS ORDERED: CefOXitin 1,000 MG VIAL ONE (15:14)
--- NOTE | 2017-01-25 15:45 | Operative Note ---
Date of procedure: 01/25/17 Pre-op diagnosis: History recurrent sigmoid diverticulitis with abscess Post-op diagnosis: same Procedure: Robot asisted sigmoid colectomy with anastamosis Anesthesia: EDWARDO Surgeon: Philipp Stephen Estimated blood loss (cc): 50 Specimen: sigmoid colon, anastamotic rings Condition: stable Disposition: PACU Procedure in Detail: Date of surgery: 01/25/17 After properly identifying the patient, the patient was brought to the operating room and placed in the supine position. After proper IV sedation was achieved followed by general endotracheal intubation, the patient was placed in the low lithotomy position and the patient's abdomen and perianal area were prepped and draped in normal sterile fashion. A timeout was performed noting the patient's name and type of procedure to be performed. A 15 blade scalpel was used to make an incision just to the right of the midline above the umbilicus. A 12 mm Visiport was then used to dissect the subcutaneous tissue, external and internal oblique fascia, and transversalis abdominous fascia of the abdomen was entered. A laparoscopic camera was placed to the port which showed no injury to the intra-abdominal organs upon entry. Two right lower quadrant 8 mm ports were placed under direct camera visualization. A left lateral 8 mm port was then placed under direct camera visualization. The patient was placed in Trendelenburg position and the da Jose robot was brought towards the operative field and docked appropriately. The left colon was identified and the lateral attachments were dissected free from the left colon up towards the splenic flexure. Portions of the splenic flexure were also dissected with Bovie cauterization and blunt dissection. The sigmoid segment was evaluated and noted to be hard and firm with active chronic inflammation from her previous multiple bouts of diverticulitis with abscess formation. The sigmoid colon was retracted superiorly and the peritoneum overlying the mesentery of the sigmoid colon was scored with Bovie cauterization. This dissection to the mesentery was then continued with a laparoscopic vessel sealer towards the left colon. The left adnexa was densely adherent to the sigmoid colon and was carefully dissected with sharp dissection and Bovie cauterization away from the serosa of the colon. This allowed for better medial retraction of the sigmoid segment. More of the peritoneum overlying the mesentery near the rectosigmoid junction was scored with Bovie cauterization and the mesentery itself was dissected with the upper scalp vessel sealer. Portions of the mesenteric lymphatics were densely inflamed with signs of chronic inflammation making retraction difficult. Because of the need for an even more extended resection of the sigmoid segment the splenic flexure was further taken down with both Bovie cauterization and blunt dissection. The sigmoid segment at the level of the left colon was transected with a robotic laparoscopic stapler. Because of the length necessary to allow for anastomosis the robot was undocked and additional retraction and dissection of the left colonic attachments and splenic flexure were performed with Bovie cauterization and blunt dissection. Once this was performed the decision was made to go ahead and convert this to the open procedure by making a incision from the level of the pubic symphysis superiorly through the midline near the inferior aspect of the umbilicus. Bovie cauterization was used to dissect through the subcutaneous tissue, and the rectus abdominous fascia was incised and the abdomen was opened. An Vargas was brought onto the field to retract and protect the subcutaneous tissue. The remaining dense lymphatics of the sigmoid mesentery were transected with a handheld LigaSure and Bovie cauterization until the rectosigmoid junction was identified and transected with a Contour stapler. The sigmoid segment was then removed and the left colonic stump was identified. The staple line was excised and sizers were placed through the opening which was used to determine that a 29 -Persian stapler would be appropriate. A 2-0 Prolene suture was used to create a pursestring along the opening of the left colonic stump and an EEA stapler was brought to the operative field. The anvil was placed through the opening and pursestring was tied. The male end of the EEA stapler was introduced through the anus and its end was extruded just anterior to the rectal staple line. The anvil was connected and the EEA staple was retracted and fired without difficult. Inspection demonstrated two intact anastomotic rings which were submitted to pathology. The pelvis was then filled with normal saline solution and air was insufflated through the anus while the left colon above the staple line was clamped. No evidence of air leak were identified. The pelvis was then suctioned and once again irrigated with normal saline this time containing Mefoxin. The decision was made to conclude the surgical procedure by removing all ports and placing Seprafilm within the wound. The Vargas was removed and the fascia reapproximated with 2 running #1 PDS sutures. The subcutaneous tissue was reapproximated with interrupted 2-0 Vicryl sutures and the remaining epidermal and dermal layers were reapproximated with al. Needle, sponge, and instrument counts were correct 2 and the incisions were covered with 4 x 4's and Band-Aids. The patient was aroused from IV sedation, extubated in the operating room without complication, and transported to the recovery room in stable condition.
--- NOTE | 2017-01-25 16:29 | Anesthesia Evaluation Post Op ---
Date of Encounter: 01/25/17 Time of Encounter: 16:29 - Vital Signs Vital Signs: Vital Signs - Last 8 Hours Temp Pulse Resp BP Pulse Ox 01/25/17 16:22 88 16 106/56 96 01/25/17 16:12 100 16 120/64 98 01/25/17 16:02 97.8 F 94 16 116/79 100 01/25/17 09:06 98.0 F 109 18 123/69 97 01/25/17 08:45 98.0 F 109 18 123/69 97 Intake and Output 01/25/17 01/25/17 01/25/17 07:59 15:59 23:59 Output Total 50 / 50 Balance -50 / -50 Output: Estimated Blood Loss 50 / 50 Other: Weight 93.44 kg Patient Weight 01/25/17 23:59 Weight 93.44 kg - Lungs Lungs: Clear Ascult./Percussion - Airway Airway: Non-obstructed, Obstructed - Cardiovascular Regular Rate, Baseline Rhythm - Mental Status Mental Status: Alert & Oriented, Answers Appropriately, Asleep without brisk response to light stimulation - Pain Pain Scale: 0 Pain Scale used: Numeric (1 - 10) - Nausea Vomiting Nausea Vomiting: Not Present - Hydration Hydration: Tolerates oral liquids - Discharge PostOp Status: Transfer Patient to floor
[2017-01-25] MEDS ORDERED: Naloxone 0.4 MG/ML INJ IVP PRN (17:09)
[2017-01-25] MEDS ORDERED: Ondansetron 4 MG/2 ML VIAL IVP PRN (17:09)
[2017-01-25] MEDS: cefOXitin 1,000 MG in D5% in Water (Mini-Bag+) 100 ML IVPB SCH ×2 (18:42→23:47)
[2017-01-25] MEDS: *HR* HYDROmorphone (PF) 1 MG/ML SYRINGE IVP PRN ×2 (18:42→21:34)
[2017-01-25] MEDS: 0.9 % Sodium Chloride 1,000 ML IVC SCH (18:43)
[2017-01-25] MEDS ORDERED: *HR* HYDROmorphone 2 MG/ML SYRINGE IVP ONE (22:40)
[2017-01-26] MEDS: *HR* HYDROmorphone (PF) 1 MG/ML SYRINGE IVP PRN ×3 (01:10→05:12)
[2017-01-26 04:21] LABS: Basophils % 0.1 %; Hematocrit 37.6 % (35.3-44.9); Hemoglobin 12.1 g/dL (11.5-15.4); Immature Granulocytes % 0.4 % (0-4); Lymphocytes # 0.9 K/mcL (0.6-4.6); Lymphocytes % 6.5 %; Mean Corpuscular HGB Conc 32.2 g/dL (31.6-35.5); Mean Corpuscular Volume 93.1 fL (83.0-100.0); Mean Platelet Volume 9.4 fL (9.4-12.4); Monocytes % 6.6 %; Neutrophils # 12.6 K/mcL (1.6-8.9); Platelet Count 229 K/mcL (140-400); Red Blood Count 4.04 M/mcL (3.82-4.97); Red Cell Distribution Width 13.7 % (11.5-14.5); Segmented Neutrophils % 86.4 %
[2017-01-26 04:36] LABS: BUN/Creatinine Ratio 8 (6-26); Blood Urea Nitrogen 6 mg/dL (7-20); Calcium 8.5 mg/dL (8.6-10.8); Carbon Dioxide 24 mEq/L (19-29); Chloride 109 mEq/L (98-109); Glucose 127 mg/dL (70-99); Magnesium 1.9 mg/dL (1.6-2.6); Osmolality,Calculated 285 (280-300); Potassium 4.4 mEq/L (3.5-4.5); Sodium 138 mEq/L (136-145); eGFR For African Americans > 60 (> 60); eGFR For Non-African Americans > 60 (> 60)
[2017-01-26] MEDS: 0.9 % Sodium Chloride 1,000 ML IVC SCH ×2 (05:20→15:59)
--- NOTE | 2017-01-26 07:11 | General Surgery Progress Note ---
Date of Encounter: 01/26/17 Time of Encounter: 07:09 - Assessment and Plan (1) History of diverticular abscess of colon Current Visit: Yes Status: Acute S/P Robot assisted sigmoid colectomy POD#1. Will DC taylor. Start clears and add Percocet and Toradol. OOB and ambulate. Await return of bowel function. Subjective Patient reports: other (Patient states she notices a lack of the discomfort or pulling in the LLQ. No nausea. No flatus.) Objective Vital Signs - Last 8 Hours Temp Pulse Resp BP Pulse Ox 01/26/17 04:33 99.0 F 68 14 109/67 97 01/26/17 01:05 98.7 F 68 14 111/71 97 Intake and Output 01/25/17 01/25/17 01/26/17 15:59 23:59 07:59 Intake Total 100 / 100 1000 / 1000 Output Total 1300 / 1300 825 / 825 Balance -1200 / -1200 175 / 175 Intake: IV Fluids 100 / 100 1000 / 1000 0.9 % Sodium Chloride 1, 1000 / 1000 000 ML @ 100 mls/hr IVC . Q10H [facility] Rx#:[id number] Mefoxin 1,000 MG In 100 / 100 Dextrose 5% (Minibag+) 100 ML 100 ML @ 200 mls/ hr IVPB Q8HR [facility] Rx#: [id number] Oral 0 / 0 0 / 0 Output: Urine 450 / 450 Urethral (Taylor) 450 / 450 Estimated Blood Loss 50 / 50 Catheter 800 / 800 825 / 825 Other: Weight 93.44 kg 93.3 kg Patient Weight 01/26/17 23:59 Weight 93.3 kg - General physical appearance well developed, well nourished, no distress - Abdomen Abdomen: Present: bowel sounds present (Scant.), soft Additional Comments: Noted Tenderness to palpation of the abodmen. Dressing CDI. - Labs 01/26/17 04:11 01/26/17 04:11 Diabetes panel 01/26/17 Range/Units 04:11 Sodium 138 (136-145) mEq/L Potassium 4.4 (3.5-4.5) mEq/L Chloride 109 (98-109) mEq/L Carbon Dioxide 24 (19-29) mEq/L BUN 6 L (7-20) mg/dL Creatinine 0.77 (0.57-1.11) mg/dL Glucose 127 H (70-99) mg/dL Calcium 8.5 L (8.6-10.8) mg/dL Calcium panel 01/26/17 Range/Units 04:11 Calcium 8.5 L (8.6-10.8) mg/dL Pituitary panel 01/26/17 Range/Units 04:11 Sodium 138 (136-145) mEq/L Potassium 4.4 (3.5-4.5) mEq/L Chloride 109 (98-109) mEq/L Carbon Dioxide 24 (19-29) mEq/L BUN 6 L (7-20) mg/dL Creatinine 0.77 (0.57-1.11) mg/dL Glucose 127 H (70-99) mg/dL Calcium 8.5 L (8.6-10.8) mg/dL Adrenal panel 01/26/17 Range/Units 04:11 Sodium 138 (136-145) mEq/L Potassium 4.4 (3.5-4.5) mEq/L Chloride 109 (98-109) mEq/L Carbon Dioxide 24 (19-29) mEq/L BUN 6 L (7-20) mg/dL Creatinine 0.77 (0.57-1.11) mg/dL Glucose 127 H (70-99) mg/dL Calcium 8.5 L (8.6-10.8) mg/dL - VTE Documentation of Mechanical Device: Intermittent pneumatic compression device Consult Discharge Plan - Plan Referrals: Philipp Stephen MD [Partnered Physician] - 02/09/17 11:30 am Carol Benjamin MD [Primary Care Provider] -
[2017-01-26] MEDS: cefOXitin 1,000 MG in D5% in Water (Mini-Bag+) 100 ML IVPB SCH (07:29)
[2017-01-26] MEDS: *HR* HYDROmorphone 2 MG/ML SYRINGE IVP PRN ×6 (07:39→21:04)
[2017-01-26] MEDS: Pantoprazole 40 MG VIAL IVP SCH (07:40)
[2017-01-26] MEDS: *HR* OxyCODONE/APAP 10/325 TABLET PO PRN ×2 (08:47→16:04)
[2017-01-26] MEDS: Neosporin OINT 15 GM TUBE TP SCH ×3 (11:00→21:10)
[2017-01-26] MEDS ORDERED: Ketorolac 30 MG/ML VIAL IM SCH (12:00)
[2017-01-26] MEDS: Ketorolac 30 MG/ML VIAL IVP SCH ×2 (12:05→18:53)
[2017-01-26] MEDS: *HR* Heparin 5,000 UNIT/ML VIAL SQ SCH ×2 (16:04→18:49)
[2017-01-27] MEDS: *HR* OxyCODONE/APAP 10/325 TABLET PO PRN ×5 (00:16→22:35)
[2017-01-27] MEDS: 0.9 % Sodium Chloride 1,000 ML IVC SCH (02:09)
[2017-01-27] MEDS: *HR* HYDROmorphone 2 MG/ML SYRINGE IVP PRN ×6 (03:20→19:59)
[2017-01-27 05:08] LABS: Basophils % 0.1 %; Eosinophils % 0.3 %; Hematocrit 34.1 % (35.3-44.9); Immature Granulocytes % 0.4 % (0-4); Lymphocytes # 1.8 K/mcL (0.6-4.6); Lymphocytes % 13.3 %; Mean Corpuscular HGB Conc 30.5 g/dL (31.6-35.5); Mean Corpuscular Hemoglobin 28.7 pg (28.0-33.3); Mean Corpuscular Volume 94.2 fL (83.0-100.0); Mean Platelet Volume 10.3 fL (9.4-12.4); Monocytes # 0.9 K/mcL (0.0-1.3); Monocytes % 6.9 %; Neutrophils # 10.6 K/mcL (1.6-8.9); Platelet Count 183 K/mcL (140-400); Red Blood Count 3.62 M/mcL (3.82-4.97); Red Cell Distribution Width 13.8 % (11.5-14.5)
[2017-01-27 05:12] LABS: Hemoglobin 10.4 g/dL (11.5-15.4)
[2017-01-27 05:29] LABS: BUN/Creatinine Ratio 12 (6-26); Blood Urea Nitrogen 8 mg/dL (7-20); Calcium 8.3 mg/dL (8.6-10.8); Carbon Dioxide 19 mEq/L (19-29); Chloride 112 mEq/L (98-109); Glucose 83 mg/dL (70-99); Osmolality,Calculated 289 (280-300); Potassium 4.3 mEq/L (3.5-4.5); Sodium 141 mEq/L (136-145); eGFR For African Americans > 60 (> 60); eGFR For Non-African Americans > 60 (> 60)
[2017-01-27] MEDS: Ketorolac 30 MG/ML VIAL IVP SCH ×4 (05:45→18:30)
[2017-01-27] MEDS: *HR* Heparin 5,000 UNIT/ML VIAL SQ SCH ×2 (05:46→18:30)
[2017-01-27] MEDS: Neosporin OINT 15 GM TUBE TP SCH ×5 (07:09→20:00)
--- NOTE | 2017-01-27 07:20 | General Surgery Progress Note ---
Date of Encounter: 01/27/17 Time of Encounter: 07:18 - Assessment and Plan (1) History of diverticular abscess of colon Current Visit: Yes Status: Acute S/P Robot assisted sigmoid colectomy POD#2. Will advance diet to full liquids. Consider soft foods for dinner. OOB and ambulation. Start dressing changes today. DC IVF. Subjective Patient reports: other (Patient admits to flatus. No nausea. Tolerating clears. Pain controled with percocet and IV dilaudid.) Objective Vital Signs - Last 8 Hours Temp Pulse Resp BP Pulse Ox 01/27/17 04:38 97.9 F 60 16 128/56 95 01/26/17 23:22 97.7 F 63 18 109/68 98 Intake and Output 01/26/17 01/26/17 01/27/17 15:59 23:59 07:59 Intake Total 1460 / 1460 1480 / 1480 1080 / 1080 Output Total 600 / 600 900 / 900 600 / 600 Balance 860 / 860 580 / 580 480 / 480 Intake: IV Fluids 1100 / 1100 400 / 400 600 / 600 0.9 % Sodium Chloride 1, 1000 / 1000 400 / 400 600 / 600 000 ML @ 100 mls/hr IVC . Q10H [facility] Rx#:[id number] Mefoxin 1,000 MG In 100 / 100 Dextrose 5% (Minibag+) 100 ML 100 ML @ 200 mls/ hr IVPB Q8HR [facility] Rx#: [id number] Oral 360 / 360 1080 / 1080 480 / 480 Output: Urine 600 / 600 900 / 900 600 / 600 Other: Meal Breakfast Dinner Weight 93.9 kg Patient Weight 01/27/17 23:59 Weight 93.9 kg - General physical appearance well developed, well nourished, no distress - Abdomen Abdomen: Present: bowel sounds present, soft, tender (Mild incisional pain with palpation. Mild brusing noted. No erythema. No drainage.) - Labs 01/27/17 04:23 01/27/17 04:23 Diabetes panel 01/27/17 Range/Units 04:23 Sodium 141 (136-145) mEq/L Potassium 4.3 (3.5-4.5) mEq/L Chloride 112 H (98-109) mEq/L Carbon Dioxide 19 (19-29) mEq/L BUN 8 (7-20) mg/dL Creatinine 0.68 (0.57-1.11) mg/dL Glucose 83 (70-99) mg/dL Calcium 8.3 L (8.6-10.8) mg/dL Calcium panel 01/27/17 Range/Units 04:23 Calcium 8.3 L (8.6-10.8) mg/dL Pituitary panel 01/27/17 Range/Units 04:23 Sodium 141 (136-145) mEq/L Potassium 4.3 (3.5-4.5) mEq/L Chloride 112 H (98-109) mEq/L Carbon Dioxide 19 (19-29) mEq/L BUN 8 (7-20) mg/dL Creatinine 0.68 (0.57-1.11) mg/dL Glucose 83 (70-99) mg/dL Calcium 8.3 L (8.6-10.8) mg/dL Adrenal panel 01/27/17 Range/Units 04:23 Sodium 141 (136-145) mEq/L Potassium 4.3 (3.5-4.5) mEq/L Chloride 112 H (98-109) mEq/L Carbon Dioxide 19 (19-29) mEq/L BUN 8 (7-20) mg/dL Creatinine 0.68 (0.57-1.11) mg/dL Glucose 83 (70-99) mg/dL Calcium 8.3 L (8.6-10.8) mg/dL - VTE Documentation of Mechanical Device: Intermittent pneumatic compression device Consult Discharge Plan - Plan Referrals: Philipp Stephen MD [Partnered Physician] - 02/09/17 11:30 am Carol Benjamin MD [Primary Care Provider] -
[2017-01-27] MEDS: Pantoprazole 40 MG VIAL IVP SCH (08:56)
--- NOTE | 2017-01-27 11:11 | General Surgery Progress Note ---
Date of Encounter: 01/27/17 Time of Encounter: 11:09 - Assessment and Plan (1) History of diverticular abscess of colon Current Visit: Yes Status: Acute S/P Robot assisted sigmoid colectomy POD#2. Will advance diet to full liquids. Consider soft foods for dinner. OOB and ambulation. Start dressing changes today. DC IVF. Subjective Patient reports: no new complaints, other (Noted heart rate in the 90's since the taylor was placed. No nausea. Tolerating PO.) Objective Vital Signs - Last 8 Hours Temp Pulse Resp BP Pulse Ox 01/27/17 09:03 99 01/27/17 08:19 98.0 F 69 16 126/82 99 01/27/17 04:38 97.9 F 60 16 128/56 95 Intake and Output 01/26/17 01/27/17 01/27/17 23:59 07:59 15:59 Intake Total 1480 / 1480 1080 / 1080 100 / 100 Output Total 900 / 900 600 / 600 0 / 0 Balance 580 / 580 480 / 480 100 / 100 Intake: IV Fluids 400 / 400 600 / 600 0.9 % Sodium Chloride 1, 400 / 400 600 / 600 000 ML @ 100 mls/hr IVC . Q10H [facility] Rx#:[id number] Oral 1080 / 1080 480 / 480 100 / 100 Output: Urine 900 / 900 600 / 600 0 / 0 Other: Meal Dinner Breakfast Percent of Meal Consumed 15% Weight 93.9 kg Patient Weight 01/27/17 23:59 Weight 93.9 kg - General physical appearance well nourished, no distress - Abdomen Abdomen: Present: bowel sounds present, soft (Incision CDI. No erythema. No drainage.) - Musculoskeletal other (Decreasing pedal edema noted.) - Labs 01/27/17 04:23 01/27/17 04:23 Diabetes panel 01/27/17 Range/Units 04:23 Sodium 141 (136-145) mEq/L Potassium 4.3 (3.5-4.5) mEq/L Chloride 112 H (98-109) mEq/L Carbon Dioxide 19 (19-29) mEq/L BUN 8 (7-20) mg/dL Creatinine 0.68 (0.57-1.11) mg/dL Glucose 83 (70-99) mg/dL Calcium 8.3 L (8.6-10.8) mg/dL Calcium panel 01/27/17 Range/Units 04:23 Calcium 8.3 L (8.6-10.8) mg/dL Pituitary panel 01/27/17 Range/Units 04:23 Sodium 141 (136-145) mEq/L Potassium 4.3 (3.5-4.5) mEq/L Chloride 112 H (98-109) mEq/L Carbon Dioxide 19 (19-29) mEq/L BUN 8 (7-20) mg/dL Creatinine 0.68 (0.57-1.11) mg/dL Glucose 83 (70-99) mg/dL Calcium 8.3 L (8.6-10.8) mg/dL Adrenal panel 01/27/17 Range/Units 04:23 Sodium 141 (136-145) mEq/L Potassium 4.3 (3.5-4.5) mEq/L Chloride 112 H (98-109) mEq/L Carbon Dioxide 19 (19-29) mEq/L BUN 8 (7-20) mg/dL Creatinine 0.68 (0.57-1.11) mg/dL Glucose 83 (70-99) mg/dL Calcium 8.3 L (8.6-10.8) mg/dL - VTE Documentation of Mechanical Device: Intermittent pneumatic compression device Consult Discharge Plan - Plan Referrals: Philipp Stephen MD [Partnered Physician] - 02/09/17 11:30 am Carol Benjamin MD [Primary Care Provider] -
[2017-01-27] MEDS: Silver Sulfadiazine 50 GM TUBE TP SCH (20:00)
[2017-01-28] MEDS: *HR* OxyCODONE/APAP 10/325 TABLET PO PRN ×3 (02:40→10:58)
[2017-01-28 05:46] LABS: Basophils % 0.4 %; Eosinophils # 0.2 K/mcL (0.0-0.6); Hematocrit 33.1 % (35.3-44.9); Hemoglobin 10.3 g/dL (11.5-15.4); Immature Granulocytes % 0.4 % (0-4); Lymphocytes # 1.8 K/mcL (0.6-4.6); Lymphocytes % 23.3 %; Mean Corpuscular HGB Conc 31.1 g/dL (31.6-35.5); Mean Corpuscular Hemoglobin 29.5 pg (28.0-33.3); Mean Corpuscular Volume 94.8 fL (83.0-100.0); Mean Platelet Volume 9.9 fL (9.4-12.4); Monocytes # 0.6 K/mcL (0.0-1.3); Monocytes % 7.6 %; Neutrophils # 5.2 K/mcL (1.6-8.9); Platelet Count 176 K/mcL (140-400); Red Blood Count 3.49 M/mcL (3.82-4.97); Red Cell Distribution Width 14.1 % (11.5-14.5); Segmented Neutrophils % 66.3 %
[2017-01-28] MEDS: Ketorolac 30 MG/ML VIAL IVP SCH ×3 (06:16→11:01)
[2017-01-28] MEDS: *HR* Heparin 5,000 UNIT/ML VIAL SQ SCH (06:17)
[2017-01-28] MEDS: Pantoprazole 40 MG VIAL IVP SCH (09:58)
[2017-01-28] MEDS: Silver Sulfadiazine 50 GM TUBE TP SCH (09:59)
[2017-01-28] MEDS: Neosporin OINT 15 GM TUBE TP SCH ×2 (09:59→12:55)
[2017-01-28] MEDS: *HR* HYDROmorphone 2 MG/ML SYRINGE IVP PRN (12:10)
[2017-01-28 15:00] VITALS: BP 154/93
[2017-01-28] MEDS ORDERED: *HR* HYDROcodone/Acet 10/325 mg TABLET PO PRN (15:08)
--- NOTE | 2017-01-28 16:07 | Discharge Summary ---
<TuscolaCarol Carson - Last Filed: 01/28/17 16:05> Date of Encounter: 01/28/17 Time of Encounter: 16:00 - Discharge Diagnosis (1) History of diverticular abscess of colon Priority: Primary Status: Resolved - Discharge Medications Prescriptions: HYDROcodone/Acet 10/325 mg [[place] 10-325 mg] 1 tab PO Q4HR PRN #30 tab PRN Reason: Pain Docusate [Colace] 100 mg PO BID #30 capsule Silver Sulfadiazine [Silvadene] 1 appl TP BID #1 tube Home Medications: TraMADol [Ultram] 50 - 100 mg PO Q6H PRN 08/13/16 [History] Venlafaxine XR (24 HR) [Effexor Xr] 37.5 mg PO DAILY 11/11/16 [History] Levonorgestrel [Mirena] 52 mg IY ONCE 01/25/17 [History] Docusate [Colace] 100 mg PO BID #30 capsule 01/28/17 [Rx] HYDROcodone/Acet 10/325 mg [[place] 10-325 mg] 1 tab PO Q4HR PRN #30 tab 01/28/17 [Rx] Silver Sulfadiazine [Silvadene] 1 appl TP BID #1 tube 01/28/17 [Rx] Allergies/Adverse Reactions: Allergies No Known Allergies Allergy (Verified 01/25/17 10:01) General Surgery Exam Initial Vital Signs Temp Pulse Resp BP Pulse Ox 98.0 F 109 18 123/69 97 01/25/17 08:45 01/25/17 08:45 01/25/17 08:45 01/25/17 08:45 01/25/17 08:45 - General physical appearance well developed, well nourished, no distress - Eyes normal ocular movement - ENT normal mucosa, atraumatic, normocephalic - Neck trachea midline - Respiratory normal respiratory effort, clear to auscultation - Cardiovascular Cardiovascular exam: Present: RRR, 15, 16 - Abdomen Abdomen general surgery: Present: bowel sounds present, soft, tender (expected post-operative tenderness) - Incision Incision: Present: clean and dry, intact - Integumentary Integumentary general surgery: Present: warm and dry - Neurologic Present: CN 2-12 grossly intact - Musculoskeletal Present: normal gait, normal posture - Psychiatric Psychiatric general surgery: Present: appropriate, oriented to person, oriented to place, oriented to time, speech is normal, memory intact Date of admission: 01/25/17 16:52 Primary care physician: Carol Norris Discharging clinician: Philipp Stephen ([facility]) Anticipated date of discharge: 01/28/17 - Patient Status Disposition: Home, Self-Care Condition: Good Functional capacity at discharge: independent ambulation Overall status at discharge: patient is progressing back to baseline - Discharge Instructions Instructions: Colectomy (DC) Follow Up With: Philipp Stephen MD [Partnered Physician] - 02/09/17 11:30 am Carol Benjamin MD [Primary Care Provider] - Additional Instructions: #1 may shower, no tub bath for 2 weeks #2 wash incisions with soap and water and pat dry daily #3 no lifting, pushing, pulling more than 15 pounds for the next 4 weeks #4 no driving until off narcotics for 24 hours and able to safely react in the car #5 may climb stairs - Diet and Activity Activity: other (See additional instructions above) Diet: advance to your usual diet - Hospital Course Hospital course: Ms. Forman is a 31 year old female POD #3 from a robotic assisted sigmoid resection. Her diet has slowly been advanced as tolerated to regular diet. She is tolerating without nausea/vomiting. Vital signs are stable and she is afebrile. She is having regular bowel function. Her pain is controlled. She is ambulating and voiding without difficulty. We will begin discharge planning and plan for outpatient follow-up in the next 10-14 days. - Time Spent with Patient Total time spent providing and/or coordinating discharge services: Less than 30 minutes Labs on day of discharge: Labs from last 24 hours 01/28/17 05:13 WBC 7.9 RBC 3.49 L Hgb 10.3 L Hct 33.1 L MCV 94.8 MCH 29.5 MCHC 31.1 L RDW 14.1 Plt Count 176 MPV 9.9 Immature Gran % 0.4 Seg Neutrophils % 66.3 Lymphocytes % 23.3 Monocytes % 7.6 Eosinophils % 2.0 Basophils % 0.4 Neutrophils # 5.2 Lymphocytes # 1.8 Monocytes # 0.6 Eosinophils # 0.2 Basophils # 0.0 - Attending Attestation I examined this patient and my medical decision-making was reviewed with the AUTOMOTIVE PRODUCT SPECIALIST/PA/Advanced Practice Nurse/Resident Physician. I agree with the documented findings, disposition and treatment plan as described except to the extent set forth below. <Dean Stephenshelley Shaffer - Last Filed: 01/31/17 06:45> Date of Encounter: 01/31/17 - Discharge Diagnosis (1) History of diverticular abscess of colon Status: Resolved General Surgery Exam Initial Vital Signs Temp Pulse Resp BP Pulse Ox 98.0 F 109 18 123/69 97 01/25/17 08:45 01/25/17 08:45 01/25/17 08:45 01/25/17 08:45 01/25/17 08:45 Date of admission: 01/25/17 16:52 Primary care physician: Carol Galvan[facility] - Patient Status Functional capacity at discharge: independent ambulation Overall status at discharge: patient is progressing back to baseline - Hospital Course Hospital course: Ms. Forman is a 31 year old female - Time Spent with Patient Total time spent providing and/or coordinating discharge services: - Attending Attestation Review of the above assessment examination within practitioner present. Patient still has abdominal pain but overall is improving. Positive flatus. Tolerating by mouth diet. Likely discharge home later this afternoon. We will have the patient follow-up in my office within 2 weeks.
== END 2017-01-28 18:22 | disposition home or self-care (01) | DRG 330 ==
LOC: SAMDAY 08:34 → 3ANU 16:52
PROVIDERS: ADMIT Surgery; ATTEND Surgery

== ENCOUNTER 2021-07-20 13:39 | Observation (INO) ==
[2021-07-20] MEDS ORDERED: Ondansetron 4 MG/2 ML VIAL IVP ONE (14:19)
[2021-07-20] MEDS ORDERED: Ketorolac 30 MG/ML VIAL IVP ONE (14:19)
[2021-07-20] MEDS ORDERED: diazePAM 10 MG/2 ML SYRINGE IVP STA (14:19)
[2021-07-20] MEDS ORDERED: 0.9 % Sodium Chloride 1,000 ML IVC ONE (14:19)
[2021-07-20] MEDS ORDERED: Isovue-370 500 ML BOTTLE IVP ONE ×2 (14:20→17:51)
[2021-07-20 14:52] LABS: Basophils # 0.1 K/mcL (0.0-0.2); Basophils % 0.7 %; Eosinophils # 0.4 K/mcL (0.0-0.6); Eosinophils % 2.5 %; Hematocrit 41.7 % (35.3-44.9); Hemoglobin 13.8 g/dL (11.5-15.4); Immature Granulocytes % 1.1 % (0-4); Lymphocytes # 4.1 K/mcL (0.6-4.6); Lymphocytes % 27.3 %; Mean Corpuscular HGB Conc 33.1 g/dL (31.6-35.5); Mean Corpuscular Hemoglobin 31.2 pg (28.0-33.3); Mean Corpuscular Volume 94.1 fL (83.0-100.0); Mean Platelet Volume 8.7 fL (9.4-12.4); Monocytes # 0.9 K/mcL (0.0-1.3); Monocytes % 6.2 %; Neutrophils # 9.4 K/mcL (1.6-8.9); Platelet Count 306 K/mcL (140-400); Red Blood Count 4.43 M/mcL (3.82-4.97); Red Cell Distribution Width 12.6 % (11.5-14.5); Segmented Neutrophils % 62.2 %; White Blood Count 15.1 K/mcL (4.3-11.1)
[2021-07-20 15:04] LABS: Bacteria,Urine Few per hpf (None-Few); Bilirubin,Urine Negative (Negative); Blood,Urine Trace (Negative); Calcium Oxalate Crystals,Urine Present per hpf; Clarity,Urine Clear (Clear); Color,Urine Yellow (Yellow); Glucose,Urine (UA) Normal (Normal); Ketones,Urine Negative (Negative); Leukocyte Esterase,Urine Moderate (Negative); Mucus,Urine Few per lpf (None-Few); Nitrite,Urine Negative (Negative); Protein,Urine 50 mg/dL (Neg-Trace); Specific Gravity,Urine > 1.030 (1.010-1.025); Squamous Epithelial Cell,Urine Few per hpf (None-Few)
[2021-07-20 15:12] LABS: Alanine Aminotransferase 10 Units/L (7-52); Albumin/Globulin Ratio 1.2 (1.1-2.2); Alkaline Phosphatase 72 Units/L (34-104); Amylase 25 Units/L (29-103); Aspartate Amino Transferase 15 Units/L (13-39); BUN/Creatinine Ratio 17 (6-26); Bilirubin,Direct 0.1 mg/dL (0.0-0.2); Bilirubin,Indirect 0.4 mg/dL (0.0-1.0); Bilirubin,Total 0.5 mg/dL (0.3-1.0); Blood Urea Nitrogen 16 mg/dL (6-20); Calcium 8.9 mg/dL (8.6-10.3); Carbon Dioxide 26 mEq/L (23-29); Chloride 104 mEq/L (98-107); Globulin 3.4 g/dL (2.4-3.5); Glucose 90 mg/dL (70-105); Lipase 12 Units/L (11-82); Osmolality,Calculated 287 (280-300); Potassium 3.5 mEq/L (3.5-5.1); Sodium 138 mEq/L (136-145); Total Protein 7.4 g/dL (6.4-8.9); Troponin I < 0.03 ng/mL (< 0.04); eGFR For African Americans > 60 (> 60); eGFR For Non-African Americans > 60 (> 60)
[2021-07-20 15:34] LABS: Reactive Lymphocytes Present (Not Present)
[2021-07-20 15:35] LABS: Platelet Estimate Normal (Normal)
[2021-07-20] MEDS ORDERED: cefTRIAXone 1,000 MG in Water for inj. (sterile) 10 ML IVP ONE (16:20)
[2021-07-20] MEDS ORDERED: Mag Hydrox/Al Hydrox/Simeth 30 ML UDC PO PRN (17:52)
[2021-07-20] MEDS ORDERED: Acetaminophen 325 MG TABLET PO PRN (17:52)
[2021-07-20] MEDS ORDERED: Naloxone 0.4 MG/ML INJ IVP PRN (17:52)
[2021-07-20] MEDS ORDERED: Ondansetron ODT 4 MG TAB.RAPDIS SL PRN (17:52)
[2021-07-20] MEDS ORDERED: Melatonin 3 MG TABLET PO PRN (17:52)
[2021-07-20] MEDS ORDERED: clonazePAM 0.5 MG TABLET PO PRN (18:18)
[2021-07-20] MEDS ORDERED: *HR* Heparin 5,000 UNIT/ML VIAL IVP PRN ×2 (21:12)
[2021-07-20] MEDS ORDERED: *HR* Heparin 5,000 UNIT/ML VIAL IVP ONE (21:12)
[2021-07-20] MEDS ORDERED: Heparin 25,000UNIT/250ML 1/2NS 25,000 UNIT/250 ML IV.SOLN IVC SCH (21:15)
[2021-07-20] MEDS: *HR* OxyCODONE Immed Rel 5 MG TABLET PO PRN (21:26)
[2021-07-20] MEDS: predniSONE 20 MG TABLET PO SCH (21:27)
[2021-07-20 22:08] LABS: Hematocrit 37.3 % (35.3-44.9); Hemoglobin 12.6 g/dL (11.5-15.4); Mean Corpuscular HGB Conc 33.8 g/dL (31.6-35.5); Mean Corpuscular Hemoglobin 31.5 pg (28.0-33.3); Mean Corpuscular Volume 93.3 fL (83.0-100.0); Mean Platelet Volume 8.9 fL (9.4-12.4); Platelet Count 273 K/mcL (140-400); Red Cell Distribution Width 12.5 % (11.5-14.5); White Blood Count 12.7 K/mcL (4.3-11.1)
[2021-07-20 22:19] LABS: Heparin anti-factor XA UFH < 0.04 IU/mL (0.30-0.70)
[2021-07-20 22:29] LABS: Prothrombin Time 10.6 Seconds (9.4-12.1)
[2021-07-21 01:24] LABS: INR 1.1; Prothrombin Time 11.7 Seconds (9.4-12.1)
[2021-07-21 01:32] LABS: BUN/Creatinine Ratio 16 (6-26); Basophils # 0.1 K/mcL (0.0-0.2); Basophils % 0.7 %; Blood Urea Nitrogen 14 mg/dL (6-20); Calcium 8.6 mg/dL (8.6-10.3); Carbon Dioxide 21 mEq/L (23-29); Chloride 106 mEq/L (98-107); Eosinophils # 0.4 K/mcL (0.0-0.6); Eosinophils % 2.7 %; Glucose 99 mg/dL (70-105); Hematocrit 39.4 % (35.3-44.9); Hemoglobin 12.9 g/dL (11.5-15.4); Immature Granulocytes % 0.9 % (0-4); Lymphocytes # 2.3 K/mcL (0.6-4.6); Lymphocytes % 15.3 %; Mean Corpuscular HGB Conc 32.7 g/dL (31.6-35.5); Mean Corpuscular Hemoglobin 30.9 pg (28.0-33.3); Mean Corpuscular Volume 94.5 fL (83.0-100.0); Mean Platelet Volume 9.1 fL (9.4-12.4); Monocytes # 0.7 K/mcL (0.0-1.3); Monocytes % 4.6 %; Neutrophils # 11.4 K/mcL (1.6-8.9); Osmolality,Calculated 281 (280-300); Platelet Count 284 K/mcL (140-400); Potassium 3.9 mEq/L (3.5-5.1); Red Blood Count 4.17 M/mcL (3.82-4.97); Red Cell Distribution Width 12.5 % (11.5-14.5); Segmented Neutrophils % 75.8 %; Sodium 135 mEq/L (136-145); White Blood Count 15.1 K/mcL (4.3-11.1); eGFR For African Americans > 60 (> 60); eGFR For Non-African Americans > 60 (> 60)
[2021-07-21] MEDS: *HR* OxyCODONE Immed Rel 5 MG TABLET PO PRN ×2 (04:22→10:59)
[2021-07-21 07:47] VITALS: BP 125/76; TEMP 98.5
[2021-07-21] MEDS: predniSONE 20 MG TABLET PO SCH (08:39)
[2021-07-21 08:49] LABS: Adenovirus Not Detected (Not Detect); Bordetella Pertussis Not Detected (Not Detect); Chlamydophila pneumoniae Not Detected (Not Detect); Coronavirus 229E Not Detected (Not Detect); Coronavirus HKU1 Not Detected (Not Detect); Coronavirus NL63 Not Detected (Not Detect); Coronavirus OC43 Not Detected (Not Detect); Human Metapneumovirus Not Detected (Not Detect); Human Rhinovirus/Enterovirus DETECTED (Not Detect); Influenza A Subtype 2009 H1 Not Detected (Not Detect); Influenza B Not Detected (Not Detect); Mycoplasma pneumoniae Not Detected (Not Detect); Parainfluenza Virus 1 Not Detected (Not Detect); Parainfluenza Virus 2 Not Detected (Not Detect); Parainfluenza Virus 3 Not Detected (Not Detect); Parainfluenza Virus 4 Not Detected (Not Detect); Respiratory Syncytial Virus Not Detected (Not Detect); SARS-CoV-2 Not Detected (Not Detect)
[2021-07-21 08:53] VITALS: PULSE 92; O2SAT 95
[2021-07-21] MEDS ORDERED: cefTRIAXone 1,000 MG in Water for inj. (sterile) 10 ML IVP SCH (09:00)
== END 2021-07-21 12:02 | disposition home or self-care (01) ==
LOC: EMEROOARM 13:39 → 2ANU 13:39 → SUATTDRO 16:45 → 2ANU 18:49
PROVIDERS: ADMIT Family Medicine; ATTEND Family Medicine